=== PATIENT | female | born 1965 | race Caucasian/White ===

== ENCOUNTER 2018-04-07 21:44 | Emergency (ER) | payer OTHER ==
[~2018-04-07] VITALS: Ht 167.6 cm; Wt 61.2 kg
[2018-04-07] MEDS: VANCOMYCIN IV 1,000 MG in IV DEXTROSE 5% 250 ML IV ONE (22:15)
[2018-04-07] MEDS ORDERED: CEFTRIAXONE 1 G VIAL ONE (22:38)
[2018-04-07] MEDS: CEFTRIAXONE 1 G in IV DEXTROSE 5% 50 ML IV ONE (22:48)
--- NOTE | 2018-04-07 22:55 | NUR ---
Pt. ambulated into ED w/ c/o R eye swelling, ecchymosis and imflammation noted on R eyelid surrounding 1mm scab below eyebrow, pt. reports having had eye surgery to remove lense 4 mos. ago and baseline vision out of R eye is now only shadows and light, denies pain/ESPINOZA/F/C/N/V/CP
--- NOTE | 2018-04-07 22:59 | NUR ---
Patient taken to CT via w/c with transporter.
[2018-04-07] MEDS ORDERED: VANCOMYCIN IV 200 ML ONE (23:23)
--- NOTE | 2018-04-08 00:50 | NUR ---
Patient in bed, no acute distress noted. VSS
--- NOTE | 2018-04-08 01:22 | NUR ---
Patient discharged to home in stable conditon. Written and verbal after care instructions given. Patient verbalizes understanding of instructions. Pt. d/c w/ prescription per MD order, ID band IV removed, all belongings w/ pt., d/c papers signed ambulated out of ED w/ steady gait, no acute distress,
== END 2018-04-08 01:25 | disposition home or self-care (01) ==
LOC: ER 21:46
DX: L03.213 Periorbital cellulitis (principal); F17.200 Nicotine dependence, unspecified, uncomplicated
CPT/HCPCS: 70480; 96365; 96366; 96368; 99284; J0696; J3370; J7060; A4663